=== PATIENT | male | born 2000 | race Caucasian/White ===

== ENCOUNTER 2019-01-29 00:18 | Emergency (ER) | payer BC ==
--- NOTE | 2019-01-29 00:22 | ERPHSYRPT ---
- History of Present Illness Time Seen by Provider: 01/29/19 00:22 Source: patient, family Exam Limitations: no limitations Physician History: 18 y/o white male presents with fish hook in right 4th digit. 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 tetanus status not utd. Timing/Duration: today Severity: mild Associated Symptoms: denies symptoms Allergies/Adverse Reactions: No Known Drug Allergies Allergy (Unverified 11/16/12 19:35) Hx Tetanus, Diphtheria Vaccination/Date Given: No (unsure) Hx Influenza Vaccination/Date Given: No - Review of Systems Constitutional: No Symptoms Eyes: No Symptoms Ears, Nose, & Throat: No Symptoms Respiratory: No Symptoms Cardiac: No Symptoms Abdominal/Gastrointestinal: No Symptoms Genitourinary Symptoms: No Symptoms Musculoskeletal: No Symptoms Skin: Other (fish hook right 4th digit) Neurological: No Symptoms Psychological: No Symptoms Endocrine: No Symptoms Hematologic/Lymphatic: No Symptoms Immunological/Allergic: No Symptoms All Other Systems: Reviewed and Negative - Past Medical History Pertinent Past Medical History: No Neurological History: No Pertinent History ENT History: No Pertinent History Cardiac History: No Pertinent History Respiratory History: No Pertinent History Endocrine Medical History: No Pertinent History Musculoskeletal History: No Pertinent History GI Medical History: No Pertinent History History: No Pertinent History Psycho-Social History: No Pertinent History Male Reproductive Disorders: No Pertinent History - Past Surgical History Past Surgical History: Yes Neuro Surgical History: No Pertinent History Cardiac: No Pertinent History Respiratory: No Pertinent History Gastrointestinal: No Pertinent History Genitourinary: No Pertinent History Musculoskeletal: No Pertinent History Other Surgical History: tonsillectomy - Social History Smoking Status: Never smoker Exposure to second hand smoke: No Drug Use: none Patient Lives Alone: No - Nursing Vital Signs Nursing Vital Signs: Initial Vital Signs Temperature 97.8 F 01/29/19 00:25 Pulse Rate 70 01/29/19 00:25 Respiratory Rate 15 01/29/19 00:25 Blood Pressure 118/83 01/29/19 00:25 O2 Sat by Pulse Oximetry 99 01/29/19 00:25 Pain Scale Pain Intensity 6 - Physical Exam General Appearance: no apparent distress, alert, anxiety Eye Exam: PERRL/EOMI Ears, Nose, Throat Exam: normal ENT inspection, moist mucous membranes Neck Exam: normal inspection, non-tender, supple, full range of motion Respiratory Exam: airway intact, No chest tenderness, No respiratory distress Gastrointestinal/Abdomen Exam: No tenderness Rectal Exam: not done Extremity Exam: other (right 4th digit with fish hook present) Neurologic Exam: alert, oriented x 3, cooperative, pharmacy informaticist II-XII nml as tested, normal mood/affect, nml cerebellar function, nml station & gait Skin Exam: normal color, warm, dry Lymphatic Exam: No adenopathy SpO2 Interpretation: normal O2 Delivery: Room Air Procedures - Additional Procedures Progress: fb removed with 1.5ml of 1% lidocaine plain. metal bonding assembler and hemostats used to remove fish hook. - Course Nursing assessment & vital signs reviewed: Yes Ordered Tests: Medication Summary Discontinued Medications Generic Name Dose Route Start Last Admin Trade Name Freq PRN Reason Stop Dose Admin Lidocaine HCl Confirm 01/29/19 00:42 Xylocaine 1% Hcl 20 Ml Mdv Administered 01/29/19 00:43 Dose 3 ml .ROUTE .STK-MED ONE - Progress Progress: improved Counseled pt/family regarding: diagnosis, need for follow-up - Departure Departure Disposition: Home Clinical Impression: Fish hook injury of finger of right hand Condition: Stable Critical Care Time: No Additional Instructions: keep site clean daily with soap and water. no ointments, lotions creams. use tylenol and ibuprofen for pain.
[2019-01-29 00:27] VITALS: BP 118/83; PULSE 70; O2SAT 99
[2019-01-29] MEDS ORDERED: XYLOCAINE 1% HCL 20 ML MDV ONE (00:42)
[2019-01-29] MEDS ORDERED: Adacel Vial IM ONE (01:02)
[2019-01-29] MEDS: Adacel Vial IM ONE (01:03)
== END 2019-01-29 01:10 | disposition home or self-care (01) ==
LOC: ED 00:18
DX: S61.246A Puncture wound with foreign body of right little finger without damage to nail, initial encounter (principal); W26.8XXA Contact with other sharp object(s), not elsewhere classified, initial encounter; W45.8XXA Other foreign body or object entering through skin, initial encounter
CPT/HCPCS: 90471; 90715; 99283

== ENCOUNTER 2024-08-31 23:43 | Emergency (ER) | payer BC ==
[2024-08-31 23:57] VITALS: TEMP 97.3
--- NOTE | 2024-08-31 23:58 | ERPHSYRPT ---
- History of Present Illness Time Seen by Provider: 08/31/24 23:58 Source: patient, family Exam Limitations: no limitations Patient Subjective Stated Complaint: c/o fifth finger injury Triage Nursing Assessment: patient brought to ED by father with c/o of right 5th finger injury. patient was trying to stop the zipline in his backyard and got his finger caught up. Patient has about 75% of the tip of his pinky amputated. Cut goes into the top of his nail bed. patient rates pain 6/10, vitals wnl, gait steady, patient doesn't appear to be in any distress at this time. 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 The cable and gear caught the tip of his right fifth digit causing a laceration. Patient's tetanus is not up-to-date. However, he refuses tetanus shot. Occurred: just prior to arrival Method of Injury: other (Pinched) Severity of Pain-Max: mild Severity of Pain-Current: mild Extremities Pain Location: 5th finger: right Modifying Factors: Improves With: movement Associated Symptoms: none Allergies/Adverse Reactions: No Known Drug Allergies Allergy (Verified 08/31/24 23:48) Home Medications: No Reportable Medications [No Reported Medications] 08/31/24 [History] Hx Tetanus, Diphtheria Vaccination/Date Given: No (unsure) Hx Influenza Vaccination/Date Given: No Hx Pneumococcal Vaccination/Date Given: No Travel Risk - International Travel Have you traveled outside of the country in past 3 weeks: No - Emerging Infectious Disease Are you exhibiting symptoms associated with any current EIDs: No - Review of Systems Constitutional: No Symptoms Eyes: No Symptoms Ears, Nose, & Throat: No Symptoms Respiratory: No Symptoms Cardiac: No Symptoms Abdominal/Gastrointestinal: No Symptoms Genitourinary Symptoms: No Symptoms Musculoskeletal: No Symptoms Skin: Other (Skin laceration tip of right fifth digit) Neurological: No Symptoms Psychological: No Symptoms Endocrine: No Symptoms Hematologic/Lymphatic: No Symptoms Immunological/Allergic: No Symptoms All Other Systems: Reviewed and Negative - Past Medical History Pertinent Past Medical History: No Neurological History: No Pertinent History ENT History: No Pertinent History Cardiac History: No Pertinent History Respiratory History: No Pertinent History Endocrine Medical History: No Pertinent History Musculoskeletal History: No Pertinent History GI Medical History: No Pertinent History History: No Pertinent History Psycho-Social History: No Pertinent History Male Reproductive Disorders: No Pertinent History - Past Surgical History Past Surgical History: Yes Neuro Surgical History: No Pertinent History Cardiac: No Pertinent History Respiratory: No Pertinent History Gastrointestinal: No Pertinent History Genitourinary: No Pertinent History Musculoskeletal: No Pertinent History Other Surgical History: tonsillectomy - Social History Smoking Status: Current some day smoker Exposure to second hand smoke: No Drug Use: marijuana - Social Determinants of Health Will the patient participate in the screening: Yes Do you worry about a steady place to live?: No Do you have any problems with any of the following?: No known problems In the past 12 months,have you had to go without utilities?: No Transportation Issues: No Has anyone in your support network made you feel unsafe?: No Have you or anyone in your house had to go w/o enough food: No - Nursing Vital Signs Nursing Vital Signs: Initial Vital Signs Temperature 97.3 F 08/31/24 23:48 Pulse Rate 57 L 08/31/24 23:48 Respiratory Rate 18 08/31/24 23:48 Blood Pressure 95/60 08/31/24 23:48 O2 Sat by Pulse Oximetry 100 08/31/24 23:48 Pain Scale Pain Intensity 4 - Physical Exam General Appearance: no apparent distress, alert, anxiety Eyes, Ears, Nose, Throat Exam: normal ENT inspection, moist mucous membranes Neck Exam: normal inspection, non-tender, supple, full range of motion Cardiovascular/Respiratory Exam: chest non-tender, no respiratory distress Abdominal Exam: non-tender Back Exam: normal inspection, normal range of motion, No CVA tenderness, No vertebral tenderness Shoulder Exam: normal inspection, non-tender, no evidence of injury, normal ROM Elbow/Forearm Exam: normal inspection, non-tender, no evidence of injury, normal ROM Wrist Exam: normal inspection, non-tender, no evidence of injury, normal ROM Hand Exam: normal ROM, laceration (Flap laceration approximately 1 cm tip of right fifth digit), nail injury (Small sliver of lacerated nail distally and lateral aspect of nail), soft tissue tenderness Neuro/Tendon Exam: normal sensation, normal motor functions, normal tendon functions, no evidence tendon injury, No sensory deficit Mental Status Exam: alert, oriented x 3, cooperative Skin Exam: laceration (See above extremity section description) SpO2 Interpretation: normal SpO2: 100 O2 Delivery: Room Air Procedures - Laceration/Wound Repair Right Distal Finger Time of Procedure: 23:20 Wound Location: Right, hand (Fifth digit distal tip) Wound Length (cm): 1 Wound's Depth, Shape: superficial, flap Wound Explored: clean Irrigated: Yes (And cleaned with Betadine swab prep) Anesthesia: 1% Lidocaine Volume Anesthetic (ccs): 1.5 Wound Debrided: minimal (Sliver of lateral tip of nail on right fifth digit) Wound Repaired With: sutures Suture Size/Type: 4-0, prolene Number of Sutures: 3 Layer Closure?: No Progress: 09/01/24 00:57 There were no complications. The patient tolerated the procedure well. The area was cleaned and dried after the laceration repair. A thin layer of bacitracin ointment was applied followed by nonstick pressure dressing placed by the nurse. Ordered Tests: Medication Summary Discontinued Medications Generic Name Dose Route Start Last Admin Trade Name Freq PRN Reason Stop Dose Admin Bacitracin Zinc 0.9 each 09/01/24 00:45 Bacitracin Packet 1 Each Pckt TP 09/01/24 00:46 STAT ONE Bacitracin Zinc Confirm 09/01/24 00:48 Bacitracin Packet 1 Each Pckt Administered 09/01/24 00:49 Dose 1 each .ROUTE .STK-MED ONE Lidocaine HCl Confirm 09/01/24 00:29 Lidocaine Hcl 1% 20 Ml Mdv 20 Ml Ml Administered 09/01/24 00:30 Dose 3 ml .ROUTE .STK-MED ONE Lidocaine HCl 3 ml 09/01/24 00:32 09/01/24 00:33 Lidocaine Hcl 1% 20 Ml Mdv 20 Ml Ml IJ 09/01/24 00:33 3 ml STAT ONE Administration - Progress Progress: improved Progress Note: 09/01/24 00:58 My medical decision making and the assignment of low complexity to this patient's medical issue today is based on review of the patient's past medical history, review the patient's medication list, reviewed patient drug allergy list, history present illness and physical findings on examination. The workup in this patient does not require any radiographic or laboratory studies. Differential diagnosis includes but is not limited to skin flap laceration, deep abrasion, contusion, skin tear Patient was offered tetanus injection and patient refuses. Counseled pt/family regarding: diagnosis, need for follow-up Medical Desision Making - Diagnostic Testing Diagnostic test were ordered, analyzed, and reviewed by me: No - Risk of complications Minimal Risk: Minimal risk of morbidity - Departure Departure Disposition: Home Clinical Impression: Flap laceration of skin Condition: Stable Critical Care Time: No Referrals: DOCTOR,NO FAMILY [Primary Care Provider, UNKNOWN] - Follow up/PCP as directed Additional Instructions: Keep the pressure dressing in place until the morning of 09/02/2024. At that time you may remove the pressure dressing. Rinse the site off with soapy water and dry by blot drying or using a chairman & ceo as discussed. After drying, placed a thin layer of antibiotic ointment of choice to the repair line and cover with a nonstick bandage. Use Tylenol and ibuprofen for pain control. Suture removal in 10 days.
[2024-09-01] MEDS ORDERED: XYLOCAINE 1% HCL 20 ML MDV ONE (00:29)
[2024-09-01] MEDS: XYLOCAINE 1% HCL 20 ML MDV IJ ONE (00:33)
[2024-09-01] MEDS ORDERED: BACIGUENT PACKET ONE (00:48)
[2024-09-01] MEDS: BACIGUENT PACKET TP ONE (00:52)
[2024-09-01 01:01] VITALS: BP 108/73; PULSE 78; RESP 16; O2SAT 99
== END 2024-09-01 01:08 | disposition home or self-care (01) ==
LOC: ED 23:43
DX: S61.216A Laceration without foreign body of right little finger without damage to nail, initial encounter (principal); W23.0XXA Caught, crushed, jammed, or pinched between moving objects, initial encounter; Y92.007 Garden or yard of unspecified non-institutional (private) residence as the place of occurrence of the external cause
CPT/HCPCS: 12001; 99283; A9270-GY